=== PATIENT | male | born 1960 | race Caucasian/White ===

== ENCOUNTER 2016-10-30 16:00 | Emergency (ER) | payer SELFPAY ==
[2016-10-30 16:42] VITALS: BP 150/82
--- NOTE | 2016-10-30 16:59 | EDM.PDOC ---
ED HPI Trauma - General Chief Complaint: Lower Extremity Injury/Pain Stated Complaint: Righ Hip pain Time Seen by Provider: 10/30/16 16:02 Source: Reports: Patient History Limitations: Reports: No limitations - History of Present Illness INITIAL COMMENTS - FREE TEXT/NARRATIVE: Patient presents with right hip pain after slipping on ice and falling on right hip. It hurts to put full weight on it. He also has some mild pain in left side of his neck since the fall. No LOC, vision changes, vomiting. Allergies/ADRs: Allergies No Known Allergies Allergy (Verified 10/30/16 16:39) Home Medications: Ambulatory Orders . [No Known Home Meds] 10/30/16 [Confirmed 10/30/16] Review of Systems - Review of Systems Review Of Systems: See Below Constitutional: Denies: fever, weakness Eyes: Denies: blindness, blurred vision, vision change Ears: Denies: dizziness Nose: Reports: no symptoms Mouth/Throat: Reports: no symptoms Respiratory: Denies: Shortness of Breath, Cough Cardiovascular: Denies: chest pain, lightheadedness, syncope GI/Abdominal: Denies: Abdominal pain, Nausea, Vomiting Genitourinary: Reports: no symptoms Musculoskeletal: Reports: neck pain, leg pain (right lateral hip) Skin: Reports: no symptoms Neurological: Denies: Confusion, Dizziness, Headache, Numbness, Seizure, Syncope , Tingling, Trouble Speaking, Weakness Psychiatric: Denies: confusion Trauma Exam - Physical Exam Exam: See Below Exam Limited By: No limitations General Appearance: Reports: alert, WD/WN, no apparent distress Head: Reports: atraumatic, normocephalic Eyes: bilateral eye: EOMI, normal inspection, PERRL Ears: Reports: normal external exam, hearing grossly normal Nose: Reports: normal inspection Throat/Mouth: Reports: Normal lips, Normal voice, No airway compromise Neck: Reports: full range of motion, normal alignment, tender lateral (left trapezius). Denies: painful range of motion, spinous processes tender, stiff neck, tender midline Respiratory Exam: Reports: no respiratory distress, lungs clear, normal breath sounds, no accessory muscle use Cardiovascular: Reports: regular rate, rhythm, no murmur Extremities: Reports: pain with movement (when he tries to raise the right thigh.), tenderness (over lateral greater trochanter right) Neurologic: Reports: ham pumper II-XII nml as tested, no motor/sensory deficits, alert , normal mood/affect, oriented x 3 Skin: Reports: Normal color, Warm/dry - John Coma Score Best Eye Response (Heber): (4) open spontaneously Best Verbal Response (John): (5) oriented Best Motor Response (Heber): (6) obeys commands Course - Vital Signs Last Recorded V/S: Last Vital Signs Temp 98.3 F 10/30/16 16:40 Pulse 72 10/30/16 16:40 Resp 18 10/30/16 16:40 BP 150/82 H 10/30/16 16:40 Pulse Ox 95 10/30/16 16:40 - Orders/Labs/Meds Orders: Active Orders 24 hr Category Date Time Status Hip Min 2V or 3V w Pelvis Rt [CR] Stat Exams 10/30/16 16:42 Taken Departure - Departure Time of Disposition: 18:04 Disposition: Home, Self-Care 01 Condition: good Clinical Impression: Right hip pain, Bilateral hip joint arthritis Forms: ED Department Discharge Additional Instructions: 1. Use crutches for ambulation if painful to put weight on hip. 2. Take Ibuprofen 400mg twice a day for 1-2 weeks to help with the pain. 3. Follow up with your PCP if not improving in a week or sooner if worsening. - My Orders Last 24 Hours: My Active Orders 10/30/16 16:42 Hip Min 2V or 3V w Pelvis Rt [CR] Stat - Assessment/Plan Last 24 Hours: My Active Orders 10/30/16 16:42 Hip Min 2V or 3V w Pelvis Rt [CR] Stat
== END 2016-10-30 18:28 | disposition home or self-care (01) ==
LOC: KA.ED 16:00
DX: M25.551 Pain in right hip (principal); M16.0 Bilateral primary osteoarthritis of hip; W00.0XXA Fall on same level due to ice and snow, initial encounter
CPT/HCPCS: 99282; 99283